=== PATIENT | female | born 1940 | race African-American/Black ===

== ENCOUNTER → 2017-03-08 | Outpatient (CLI) | payer MEDICARE, MEDICAID | END | disposition home or self-care (01) | LOC: MAMMO 11:43 | PROVIDERS: ATTEND Specialist | DX: Z12.31 Encounter for screening mammogram for malignant neoplasm of breast (principal) | CPT/HCPCS: G0202 ==

== ENCOUNTER 2019-08-08 06:23 | Inpatient (IN) | payer MEDICARE, MEDICAID ==
[~2019-08-08] VITALS: Ht 149.9 cm; Wt 56.4 kg
[2019-08-08] MEDS ORDERED: HYDR-4001 PO (08:22)
[2019-08-08] MEDS ORDERED: OMEP20CA5 PO (08:22)
[2019-08-08] MEDS ORDERED: BUSP-29 PO (08:22)
[2019-08-08] MEDS ORDERED: SACU1TAB PO (08:22)
[2019-08-08] MEDS ORDERED: POTA-79 PO (08:26)
[2019-08-08] MEDS ORDERED: IODIXANOL 320MG/ML 100 ML BOTTLE IV ONE (08:33)
[2019-08-08] MEDS ORDERED: GENTAMICIN SULF 40MG/ML 2ML VIAL ONE (08:33)
[2019-08-08 08:34] LABS: INR 1.4; PARTIAL THROMBOPLASTIN TIME 28.7 sec (23.4-31.0); PROTHROMBIN TIME 14.5 sec (9.6-11.0)
[2019-08-08] MEDS ORDERED: LIDOCAINE HCL 1% 20ML VIAL (Pyxis) INJ ONE (08:34)
[2019-08-08] MEDS ORDERED: GENTAMICIN/NS IRRIGATION 500 ML IR ONE (08:34)
[2019-08-08 08:38] LABS: HEMATOCRIT 37.5 % (36.0-48.0); HEMOGLOBIN 12.2 g/dL (12.0-16.0); MEAN CORPUSCULAR HEMOGLOBIN 29.8 pg (28.0-32.0); MEAN CORPUSCULAR VOLUME 91.6 fL (81.0-99.0); PLATELET 198 x1000/uL (130-400); RED BLOOD CELL COUNT 4.09 mill/uL (4.2-5.4); RED CELL DISTRIBUTION WIDTH 18.8 % (11.6-14.6)
[2019-08-08] MEDS ORDERED: CEFAZOLIN 1000MG PREMIX 100 ML IV ONE (09:17)
[2019-08-08] MEDS ORDERED: FURO-152 PO (09:33)
[2019-08-08] MEDS ORDERED: FENTANYL CITRATE/PF 50MCG/ML 2ML VIAL ONE (09:34)
[2019-08-08] MEDS ORDERED: MIDAZOLAM HCL 2 MG/2 ML VIAL ONE (09:35)
[2019-08-08] MEDS ORDERED: PROPOFOL 10MG/ML 100ML 100 ML IV ONE (09:38)
[2019-08-08] MEDS ORDERED: DEXAMETHASONE 4MG/ML 1ML VIAL ONE (10:13)
[2019-08-08] MEDS ORDERED: ONDANSETRON HCL 4MG/2ML INJ ONE (10:13)
[2019-08-08] MEDS ORDERED: PHENYLEPHRINE 100MCG/ML 10ML VIAL (CATH LAB) IV ONE (11:00)
[2019-08-08] MEDS ORDERED: LABETALOL 5MG/ML SYR 20 MG/4 ML SYRINGE IV PRN (11:15)
[2019-08-08] MEDS ORDERED: ONDANSETRON HCL 4MG/2ML INJ IV PRN (11:15)
[2019-08-08] MEDS ORDERED: HYDROMORPHONE HCL/PF 2MG/ML CPJ IV PRN (11:15)
[2019-08-08] MEDS ORDERED: MEPERIDINE HCL/PF 25MG/ML CPJ IV PRN (11:15)
[2019-08-08] MEDS ORDERED: GLYCOPYRROLATE 0.2 MG/ML 2ML VIAL ONE (12:53)
[2019-08-08] MEDS ORDERED: NEOSTIGMINE METHYLSULFATE 1MG/ML 10 ML VIAL ONE (12:53)
[2019-08-08 16:01] VITALS: BP 94/66
[2019-08-08 16:30] VITALS: BP 104/76
[2019-08-08] MEDS ORDERED: HYDROCODONE/ACETAMINOPHEN 5/325MG TABLET PO NR (16:45)
[2019-08-08 17:30] VITALS: BP 107/76
[2019-08-08 20:00] VITALS: BP 101/79
[2019-08-08] MEDS ORDERED: HYDROCODONE/ACETAMINOPHEN 5/325MG TABLET PO SCH ×2 (20:00→20:45)
[2019-08-08 22:00] VITALS: BP 95/67
[2019-08-09] VITALS (12 sets, daily range): BP systolic 87–108; BP diastolic 55–80
[2019-08-09] MEDS: HYDROCODONE/ACETAMINOPHEN 5/325MG TABLET PO PRN ×3 (05:26→13:29)
[2019-08-09] MEDS: OMEPRAZOLE 20MG CAPSULE EXTENDED RELEASE PO SCH (06:24)
[2019-08-09 06:33] LABS: BASOPHILS % 0.3 % (0.0-2.0); HEMATOCRIT. 29.2 % (36.0-48.0); HEMOGLOBIN. 9.8 g/dL (12.0-16.0); LYMPHOCYTES % 16.8 % (20.0-50.0); MEAN CORPUSCULAR HEMOGLOBIN 30.7 pg (28.0-32.0); MEAN CORPUSCULAR VOLUME 91.9 fL (81.0-99.0); MEAN PLATELET VOLUME 9.4 fl (7.4-10.4); MONOCYTES % 6.5 % (2.0-8.0); NEUTROPHILS % 76.4 % (40.0-76.0); PLATELET 142 x1000/uL (130-400); RED BLOOD CELL COUNT 3.18 mill/uL (4.2-5.4); RED CELL DISTRIBUTION WIDTH 18.7 % (11.6-14.6)
[2019-08-09] MEDS ORDERED: POTASSIUM CHLORIDE 20MEQ TABLET SR PO SCH (09:00)
[2019-08-09] MEDS: BUSPIRONE HCL 10MG TABLET PO SCH (09:05)
[2019-08-09] MEDS: FUROSEMIDE 20MG TABLET PO SCH (09:05)
[2019-08-09] MEDS ORDERED: SODIUM POLYSTYRENE SULFONATE 15 G/60 ML BOT PO NR (12:00)
[2019-08-09] MEDS: CARVEDILOL 3.125 MG TABLET PO SCH (19:09)
[2019-08-10] VITALS (22 sets, daily range): BP systolic 76–100; BP diastolic 29–74
[2019-08-10] MEDS: HYDROCODONE/ACETAMINOPHEN 5/325MG TABLET PO PRN ×2 (01:41→20:16)
[2019-08-10] MEDS: OMEPRAZOLE 20MG CAPSULE EXTENDED RELEASE PO SCH (06:22)
[2019-08-10 06:25] LABS: BASOPHILS % 0.9 % (0.0-2.0); EOSINOPHILS % 0.8 % (0.0-5.0); HEMATOCRIT. 28.6 % (36.0-48.0); HEMOGLOBIN. 9.5 g/dL (12.0-16.0); LYMPHOCYTES % 30.5 % (20.0-50.0); MEAN CORPUSCULAR HEMOGLOBIN 30.2 pg (28.0-32.0); MEAN CORPUSCULAR VOLUME 91.2 fL (81.0-99.0); MEAN PLATELET VOLUME 9.4 fl (7.4-10.4); MONOCYTES % 6.8 % (2.0-8.0); PLATELET 128 x1000/uL (130-400); RED BLOOD CELL COUNT 3.14 mill/uL (4.2-5.4); RED CELL DISTRIBUTION WIDTH 18.5 % (11.6-14.6)
[2019-08-10] MEDS: BUSPIRONE HCL 10MG TABLET PO SCH (08:08)
[2019-08-10] MEDS: FUROSEMIDE 20MG TABLET PO SCH (08:08)
[2019-08-10] MEDS: CARVEDILOL 3.125 MG TABLET PO SCH ×2 (08:08→21:00)
[2019-08-10] MEDS ORDERED: SODIUM CHLORIDE 0.9% 250 ML IV ONE (15:30)
[2019-08-10 16:41] LABS: HEMATOCRIT 30.6 % (36.0-48.0); HEMOGLOBIN 9.9 g/dL (12.0-16.0)
[2019-08-10] MEDS: FERROUS SULFATE 325MG TABLET PO SCH (17:05)
[2019-08-11] VITALS (9 sets, daily range): BP systolic 95–110; BP diastolic 65–78
[2019-08-11 05:55] LABS: BASOPHILS % 1.2 % (0.0-2.0); EOSINOPHILS % 3.2 % (0.0-5.0); HEMATOCRIT. 31.9 % (36.0-48.0); HEMOGLOBIN. 10.6 g/dL (12.0-16.0); LYMPHOCYTES % 35.1 % (20.0-50.0); MEAN CORPUSCULAR HEMOGLOBIN 30.2 pg (28.0-32.0); MEAN CORPUSCULAR VOLUME 91.1 fL (81.0-99.0); MEAN PLATELET VOLUME 9.5 fl (7.4-10.4); MONOCYTES % 6.6 % (2.0-8.0); NEUTROPHILS % 53.9 % (40.0-76.0); PLATELET 135 x1000/uL (130-400); RED CELL DISTRIBUTION WIDTH 18.1 % (11.6-14.6)
[2019-08-11] MEDS: OMEPRAZOLE 20MG CAPSULE EXTENDED RELEASE PO SCH (06:32)
[2019-08-11] MEDS: FUROSEMIDE 20MG TABLET PO SCH (08:09)
[2019-08-11] MEDS: FERROUS SULFATE 325MG TABLET PO SCH ×2 (08:10→12:44)
[2019-08-11] MEDS: BUSPIRONE HCL 10MG TABLET PO SCH (08:10)
[2019-08-11] MEDS: CARVEDILOL 3.125 MG TABLET PO SCH (08:11)
[2019-08-11] MEDS: HYDROCODONE/ACETAMINOPHEN 5/325MG TABLET PO PRN (09:03)
== END 2019-08-11 13:03 | disposition home health service (06) | DRG 224 ==
LOC: CCL 06:23 → 3WST 06:24
PROVIDERS: ADMIT Internal Medicine Clinical Cardiac Electrophysiology; ATTEND Internal Medicine Clinical Cardiac Electrophysiology
PROC: 0JH609Z Insertion of Cardiac Resynchronization Defibrillator Pulse Generator into Chest Subcutaneous Tissue and Fascia, Open Approach (ICD-10-PCS; principal; 2019-08-08)
PROC: 02HK3KZ Insertion of Defibrillator Lead into Right Ventricle, Percutaneous Approach (ICD-10-PCS; 2019-08-08)
PROC: 4A023N6 Measurement of Cardiac Sampling and Pressure, Right Heart, Percutaneous Approach (ICD-10-PCS; 2019-08-08)
PROC: 02HL3KZ Insertion of Defibrillator Lead into Left Ventricle, Percutaneous Approach (ICD-10-PCS; 2019-08-08)
PROC: B51N1ZZ Fluoroscopy of Left Upper Extremity Veins using Low Osmolar Contrast (ICD-10-PCS; 2019-08-08)
PROC: 02H63KZ Insertion of Defibrillator Lead into Right Atrium, Percutaneous Approach (ICD-10-PCS; 2019-08-08)
DX: I25.5 Ischemic cardiomyopathy (principal); I50.23 Acute on chronic systolic (congestive) heart failure; I44.7 Left bundle-branch block, unspecified; I11.0 Hypertensive heart disease with heart failure; I25.10 Atherosclerotic heart disease of native coronary artery without angina pectoris; J44.9 Chronic obstructive pulmonary disease, unspecified; D64.9 Anemia, unspecified; E78.5 Hyperlipidemia, unspecified; I25.2 Old myocardial infarction; Z72.0 Tobacco use; Z82.49 Family history of ischemic heart disease and other diseases of the circulatory system; Z82.5 Family history of asthma and other chronic lower respiratory diseases; Z95.810 Presence of automatic (implantable) cardiac defibrillator
CPT/HCPCS: 33225; 33249; 36415; 71045; 75820; 80048; 83540; 83550; 83735; 85014; 85018; 85027; 93005; 93451; 93640; A4565; C1758; C1769; C1882; C1887; C1892; C1893; C1898; C1899; C1900; J0690; J1100; J1580; J1644; J2250; J2370; J2405; J2704; J2710; J3010; J3490; J7040; Q9967; A4315